=== PATIENT | male | born 1965 | race Caucasian/White ===

== ENCOUNTER → 2018-12-29 15:07 | Outpatient (CLI) | payer OTHER, SELFPAY ==
--- NOTE | 2018-12-29 15:16 | XR_ITS ---
PROCEDURE: XR LUMBAR SPINE MIN 4V CLINICAL INDICATION: LOW BACK PAIN COMPARISON: LS5 LUMBAR SPINE 5 VIEWS from 05/02/2013 FINDINGS: Minimal lumbar curvature convex left. There is degenerative disc disease at L2-L3 with mild reversal of lordosis at that level. Mild degenerative disc disease L 1 L2 L3-L4 L4-5 and L5-S1. Mild facet arthritic changes L5-S1. No fracture or dislocation. No lytic or blastic change. IMPRESSION: Degenerative changes most pronounced at L2-L3 with reversal of the lumbar lordosis which could be due to patient positioning or muscle spasm Dictated by: Abelardo Mandel MD 12/29/2018 17:51 Electronically signed by Abelardo Mandel MD in [place] 12/29/2018 17:51
== END ==
PROVIDERS: PCP Family Medicine; Visit Provider Family Medicine
DX: M54.5 Low back pain (principal)
CPT/HCPCS: 72110

== ENCOUNTER → 2019-05-19 10:31 | Outpatient (CLI) | payer OTHER, SELFPAY ==
--- NOTE | 2019-05-19 10:36 | XR_ITS ---
PROCEDURE: XR CHEST 2V CLINICAL HISTORY: PNEUMONIA Cough and shortness of air, smoker COMPARISON: CXR CHEST(2 VIEWS-NOT PORTABLE) from 12/12/2013 CXR CHEST(2 VIEWS-NOT PORTABLE) from 05/11/2015 CXR CHEST(2 VIEWS-NOT PORTABLE) from 01/14/2016 FINDINGS: The cardiomediastinal silhouette and pulmonary vascularity are within normal limits. COPD. Consolidation is present in both lower lobes, lingula, and in the right midlung laterally consistent with bilateral pneumonia. There is biapical pleural thickening right greater than left. Cannot exclude a right apical mass. Consider chest CT for further evaluation. IMPRESSION: 1. Bilateral pneumonia with COPD. 2. Biapical pleural thickening with possible right apical mass. Consider chest CT with contrast for further evaluation Dictated by: Abelardo Mandel MD 05/19/2019 16:20 Electronically signed by Abelardo Mandel MD in [place] 05/19/2019 16:20
== END ==
PROVIDERS: PCP Family Medicine; Visit Provider Family Medicine
DX: J18.9 Pneumonia, unspecified organism (principal)
CPT/HCPCS: 71046

== ENCOUNTER → 2019-05-31 08:56 | Outpatient (CLI) | payer OTHER, SELFPAY ==
--- NOTE | 2019-05-31 09:00 | CT_ITS ---
PROCEDURE: CT CHEST WO/W CON CLINCAL INDICATION: PULMONARY MASS Pneumonia, cough and shortness of air, abnormal chest x-ray, right apical mass COMPARISON: ABDPELW/O CT ABD PELVIS W/O CONTRAST from 05/18/2013 CXR CHEST(2 VIEWS-NOT PORTABLE) from 01/14/2016 XR CHEST 2V from 05/19/2019 TECHNIQUE: IV Contrast: 75ml Optiray 350 Axial images obtained with sagittal and coronal reformats. All CT scans at the facility use one or more dose reduction, viz: automated exposure control, ma/kV adjustment per patient size (including targeted exams where dose is matched to indication, i.e. head), or iterative reconstruction technique. FINDINGS: HEART AND MEDIASTINAL STRUCTURES: Unremarkable. LUNGS AND PLEURAL SPACES: There is right apical pleural thickening posteriorly. Left apical pleural thickening is also noted. There are scattered pleural, subpleural, and parenchymal opacities. What appears to represent mostly atelectatic changes present in the lung bases with some associated consolidation and bronchial thickening. Central parenchymal opacity noted in the left upper lobe. Bibasilar parenchymal opacities are present. These are somewhat irregular in nature. No effusions are evident. BONY STRUCTURES: No acute bony abnormalities apparent. UPPER ABDOMEN: Prior cholecystectomy with prominent cystic duct remnant ADDITIONAL FINDINGS: No other significant abnormalities. IMPRESSION: Scattered bilateral upper and lower lobe parenchymal opacities greater in the lung bases which mostly appears to represent atelectatic/fibrotic changes with some underlying pulmonary consolidation and diffuse bronchial thickening. This could represent an atypical pneumonia. Cryptogenic organizing pneumonia/BOOP is considered. There is some right apical pleural thickening. This is nonspecific and may be inflammatory/infectious. Neoplasm is not totally excluded. Suggest 3 month follow-up to confirm short term stability. Pulmonology consult may be of further value. Dictated by: Abelardo Mandel MD 06/01/2019 07:26 Electronically signed by Abelardo Mandel MD in [place] 06/01/2019 07:26
--- NOTE | 2019-05-31 10:15 | HMH.ITSHM ---
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 []ASPIRIN, DICYCLOMINE, MIDOPRINE, SUCRALFATE, OMEPRAZOLE, FLUOXTINE INHALER
== END ==
PROVIDERS: PCP Family Medicine; Visit Provider Family Medicine
DX: R91.8 Other nonspecific abnormal finding of lung field (principal)
CPT/HCPCS: 71270; Q9967

== ENCOUNTER → 2019-06-03 08:51 | Outpatient (CLI) | payer OTHER, SELFPAY ==
--- NOTE | 2019-06-03 08:56 | FL_ITS ---
PROCEDURE: FL UPPER GI W AIR CLINICAL INDICATION: EPIGASTRIC PAIN COMPARISON: No exams were available for comparison TECHNIQUE: FLUOROSCOPY TIME : 1.4 minutes FINDINGS: The esophagus, stomach, and duodenum have an unremarkable appearance.There is no evidence of hiatal hernia. No ulcer or mass evident. No mucosal abnormalities apparent. There is normal peristalsis. The duodenal C-loop is nondisplaced. IMPRESSION: Negative upper GI Dictated by: Abelardo Mandel MD 06/03/2019 14:42 Electronically signed by Abelardo Mandel MD in [place] 06/03/2019 14:42
== END ==
PROVIDERS: PCP Family Medicine; Visit Provider Family Medicine
DX: R10.13 Epigastric pain (principal)
CPT/HCPCS: 74246

== ENCOUNTER → 2019-08-08 09:34 | Outpatient (CLI) | payer OTHER, SELFPAY ==
[2019-08-08 11:36] LABS: Coronavirus 19 IgG Antibody Negative (Negative); Coronavirus 19 IgM Antibody Negative (Negative)
== END ==
PROVIDERS: Visit Provider Surgery
DX: Z01.818 Encounter for other preprocedural examination (principal); R10.13 Epigastric pain
CPT/HCPCS: 36415; 86328

== ENCOUNTER 2019-08-09 08:39 | Day surgery (SDC) | payer OTHER, SELFPAY ==
--- NOTE | 2019-08-03 14:55 | SUR.PREOP ---
08/03/2019 @ 6483--PHONE CALL MADE TO PATIENT. PATIENT UNDERSTANDS THAT LAB WORK AND COVID TESTING NEEDS TO BE COMPLETED @ 930 ON 08/08/2019. PATIENT UNDERSTANDS IF LAB WORK AND COVID-19 TESTS ARE NOT COMPLETED BY 12PM ON THAT DATE, THE SURGERY SCHEDULED WILL BE CANCELLED AND RESCHEDULED FOR ANOTHER TIME.
--- NOTE | 2019-08-09 08:48 | P.HP_ITS ---
HPI HPI: Patient is a 54-year-old male from [place]. He presents for upper endoscopy. He was referred by Dr. Aguilera for epigastric pain and seen in the office a couple of months ago. I had previously seen the patient several years ago and in 2013 he had bleeding ulcer. During that year he had undergone approximately 4 upper endoscopies to follow-up bleeding ulcers. Patient is somewhat of a poor historian. He describes recent history of pains. He points from his sternal notch to his umbilicus as the location. He actually seems to locate the pain to his substernal area and to the left chest. It seems to be somewhat positional in nature. This seems actually be worse when he is up and about and walking. He had an upper GI series which is unremarkable. Patient is on Carafate and omeprazole at this time. [facility] History I have reviewed the patient's past medical history: Yes Medical History: Reports:: Coronary Artery Disease, Gastroesophageal Reflux Disease(GERD), Hyperlipidemia *Have you ever received a pneumonia vaccine?: No *Have you received a flu vaccine this season?: No Other Surgeries: Yes: Appendectomy, Cholecystectomy, Colonoscopy, EGD, Hernia Repair Amputation: No Fractures: No - *Social History Smoking Status: Never smoker Alcohol Intake: never Substance Use Type: denies use *Occupational Status:: employed Housing: house *Travel in the last 8 weeks: None Family Hx:: No significant family history Review of Systems - Review of Systems Review of systems:: pertinent systems reviewed and negative unless documented below Meds Home Medications Medication Instructions Recorded Confirmed Type aspirin 81 mg tablet,delayed 81 mg PO DAILY 03/25/19 08/09/19 History release omeprazole 40 mg capsule,delayed 40 mg PO DAILY 03/25/19 08/09/19 History release sucralfate 1 gram tablet 1 g PO BID 03/25/19 08/09/19 History fluoxetine 40 mg capsule 40 mg PO DAILY 06/06/19 08/09/19 History midodrine 10 mg tablet 10 mg PO DAILY 06/06/19 08/09/19 History Dicyclomine HCl [Bentyl 10mg 10 mg PO QID 08/09/19 08/09/19 History capsule] Allergies Allergy/AdvReac Type Severity Reaction Status Date / Time No Known Allergies Allergy Verified 08/09/19 09:26 Exam - *Routine HEENT Exam Head: Present: normocephalic Eye: Present: EOMI, PERRL ENT: Present: mucous membranes moist - *Routine Neck Exam Present: supple. Absent: lymphadenopathy - *Routine Respiratory Exam Present: CTA bilaterally - *Routine Cardiovascular Exam Present: RRR - *Routine Abdominal Exam Present: soft, normoactive bowel sounds. Absent: tenderness - *Routine Extremities Exam Absent: cyanosis, clubbing, edema - *Routine Skin Exam Present: warm. Absent: rash - *Routine Neurological Exam Present: alert, oriented X3 Assessment and Plan - Assessment and plan all Dx Assessment and Plan for all problems:: Plan to proceed with upper endoscopy to rule out upper GI etiology particularly due to his history of ulcers. However, his symptomatology seems to be somewhat atypical and location is essentially thoracoabdominal.
[2019-08-09 09:32] VITALS: BP 127/89; PULSE 72; RESP 18; TEMP 36.5; O2SAT 98; BMI 21.7
--- NOTE | 2019-08-09 09:35 | P.PN_ITS ---
[facility] Anesthesia Checklist - Patient Identification Patient Identification: Arm Band, Verbal (Name & ) - Structural Data Admitted From: Home Planned Operative Procedure/s: egd Consent for Planned Operative Procedure(s) Verified: Yes Verified Documents: History and Physical - NPO Status Verified Time NPO: 00:00 - Additional verifications Patient : No Anesthesia Reactions: No Hx Blood Transfusions: No Blood Transfusion Reaction: No Cephalosporin Allergy: No Previous Colonoscopy: Yes - Cardiovascular Assessment Heart Sounds: S1 & S2 Pulse Strength: Baseline Pulse Rhythm: Regular Peripheral Edema: No - Airway Assessment C-Spine Mobility Assessed: Yes TMJ Mobility Assessed: Yes Dentition: Good Dentition - Neurological Assessment Level of Consciousness: Awake, Alert, Appropriate Hx Seizures: No Numbness or tingling in extremities: No - Anesthesia Plan Anesthesia Risk discussed: Yes Anesthesia Plan: Verified ASA Class: III Anesthesia Type: MAC [facility] History I have reviewed the patient's past medical history: Yes Medical History: Reports:: Coronary Artery Disease, Gastroesophageal Reflux Disease(GERD), Hyperlipidemia *Have you ever received a pneumonia vaccine?: No *Have you received a flu vaccine this season?: No Anesthesia experience/problems:: none Other Surgeries: Yes: Appendectomy, Cholecystectomy, Colonoscopy, EGD, Hernia Repair Amputation: No Fractures: No - *Social History Smoking Status: Never smoker Alcohol Intake: never Substance Use Type: denies use *Occupational Status:: employed Housing: house *Travel in the last 8 weeks: None Family Hx:: No significant family history
--- NOTE | 2019-08-09 10:33 | HMH.SCOPE ---
- Procedure: Date: 08/09/19 Procedure Performed:: Esophagogastroduodenoscopy with biopsies Indications:: Patient is a 54-year-old male from [place]. He presents for upper endoscopy. He was referred by Dr. Aguilera for epigastric pain and seen in the office a couple of months ago. I had previously seen the patient several years ago and in 2013 he had bleeding ulcer. During that year he had undergone approximately 4 upper endoscopies to follow-up bleeding ulcers. Patient is somewhat of a poor historian. He describes recent history of pains. He points from his sternal notch to his umbilicus as the location. He actually seems to locate the pain to his substernal area and to the left chest. It seems to be somewhat positional in nature. This seems actually be worse when he is up and about and walking. He had an upper GI series which is unremarkable. Patient is on Carafate and omeprazole at this time. Plan was made to proceed with upper endoscopy to evaluate potential upper GI etiology. However, his symptoms seem to be more thoracoabdominal and potentially positional Performing Provider:: Srinivasan Dawson MD Referring Provider:: Wicho Aguilera MD Sedation:: Propofol Procedure:: Patient was taken to endoscopy procedure room. He was positioned in a lateral decubitus position. Adequate intravenous sedation was achieved. Olympus endoscope was inserted via the oropharynx. Advanced through the esophagus. In the distal esophagus just proximal to the gastroesophageal junction there was beginnings of a Schatzki's ring. Stomach was cannulated and insufflated. Retroflexion revealed no appreciable hiatal hernia. There was very minimal nonerosive gastritis. There is no evidence of any ulceration. Gastric antral mucosal biopsy was obtained for CLOtest for H. pylori. There was an area in the antrum that was likely previously healed ulcer and this was biopsied as well. Pylorus was traversed. Duodenum was unremarkable. Endoscope was withdrawn into the distal esophagus and a couple biopsies were obtained at the gastroesophageal junction where there was a beginning Schatzki's ring. A couple of distal esophageal biopsies were obtained to rule out microscopic esophagitis. Endoscope was withdrawn. Findings:: Minimal beginnings of Schatzki's ring Very subtle minor nonerosive gastritis Recommendations:: No obviously apparent upper GI etiology for his symptoms. This may be thoracic. May need evaluation for chest pain. This could be atypical chest pain and anxiety related. Complications:: None immediately apparent Estimated blood obtained (mL): 3
[2019-08-09 10:35] VITALS: BP 103/73; PULSE 73; RESP 18; TEMP 36.4; O2SAT 98
[2019-08-09 10:41] VITALS: O2SAT 99
[2019-08-09 10:45] VITALS: BP 109/73; PULSE 70; RESP 18; TEMP 36.4; O2SAT 98
[2019-08-09 10:55] VITALS: BP 110/79; PULSE 64; RESP 18; TEMP 36.4; O2SAT 99
[2019-08-09 11:10] VITALS: BP 128/88; PULSE 59; RESP 18; TEMP 36.4; O2SAT 99
== END 2019-08-09 11:10 | disposition home or self-care (01) ==
PROVIDERS: PCP Family Medicine; Visit Provider Surgery
PROC: 0DJ08ZZ Inspection of Upper Intestinal Tract, Via Natural or Artificial Opening Endoscopic (ICD-10-PCS; CPT 43235; principal; 2019-08-09 09:00)
DX: K22.2 Esophageal obstruction (principal); K29.60 Other gastritis without bleeding; Z87.11 Personal history of peptic ulcer disease; Z79.899 Other long term (current) drug therapy; I25.10 Atherosclerotic heart disease of native coronary artery without angina pectoris; K21.9 Gastro-esophageal reflux disease without esophagitis; E78.5 Hyperlipidemia, unspecified; Z90.49 Acquired absence of other specified parts of digestive tract
CPT/HCPCS: 43239; 87339

== ENCOUNTER → 2019-09-06 11:45 | Outpatient (CLI) | payer OTHER, SELFPAY ==
--- NOTE | 2019-09-06 | CA_ITS ---
APPROVED REPORT Exam: Exercise Treadmill Technologist: Beba Cox Ht: 6 ft 0 in Wt: 155 lbs BSA: 1.91 m2 HR: 64 bpm BP: 127/83 mmHg Indications: Chest pain Medical History Medications: Amlodipine,,,,, Omeprazole,,,,, Aspirin,,,,, Atorvastatin,,,,, Sucralfate,,,,, DicyCLOMINE,,,,, Fluoxetine,,,,, MiDOdrine,,,,, Stress Test Details Test: Elan HR Resting HR: 75 bpm Max Heart Rate (APMHR): 166 bpm Max HR Achieved: 130 bpm Target HR (85% APMHR): 141 bpm % of APMHR: 78 Recovery HR: 82 bpm BP Resting BP: 127.0/83.0 mmHg Max BP: 136.0/84.0 mmHg Recovery BP: 122.0/83.0 mmHg ECG Clinical Exercise duration: 09:00 min Highest Stage Achieved: Exercise capacity: 10.1 METs Stress ECG Conclusion Resting ECG: Normal sinus rhythm, right bundle branch block Patient exercised 9:00 on Elan Protocol. Test stopped due to shortness of air and leg fatigue. Symptoms: No change in pretest chest pain with exercise. Arrhythmias/Ectopy: None ST-T Changes: 0.5 - 1 mm of slightly upsloping ST depression only in lead V3 Conclusion: Within normal GXT for heart rate achieved (78% of PM). Myoview images reported separately. Test Summary REST . . . . . . . Sitting REST . . . . . . . Standing REST 04:20 0.0 0.0 75 . 127/ 83 . . Stage 1 01:00 10.0 1.7 93 . . . . Stage 1 02:00 10.0 1.7 102 . . . . Stage 1 03:00 10.0 1.7 105 . 126/ 80 . . Stage 2 01:00 12.0 2.5 106 . . . . Stage 2 02:00 12.0 2.5 109 . . . . Stage 2 03:00 12.0 2.5 117 . 136/ 84 . . Stage 3 01:00 14.0 3.4 121 . . . . Stage 3 . . . . . . . Shortness of Breath Stage 3 . . . . . . . Myoview Injected Stage 3 02:00 14.0 3.4 124 . . . . Stage 3 03:00 14.0 3.4 130 . . . Stop exercise at 09:00 RECOVERY 01:00 0.0 0.0 89 . . . . RECOVERY 02:00 0.0 0.0 91 . 127/ 82 . . RECOVERY 03:00 0.0 0.0 85 . 126/ 89 . . RECOVERY 04:00 0.0 0.0 81 . 126/ 89 . . RECOVERY 05:00 0.0 0.0 81 . 122/ 83 . . RECOVERY 05:23 0.0 0.0 81 . 122/ 83 . . Electronically signed by : Mihir Serrano, 09/06/2019 21:52:47
--- NOTE | 2019-09-06 11:45 | NM_ITS ---
APPROVED REPORT Exam: Nuclear Stress Test Indication: Chest pain, SOB, Syncope, Fatigue, High cholesterol, Family history Patient Location: Outpatient Stress Tech: Beba Cox [place] Tech:Danni Lomax, ARRT, RT (R)(N) Ht: 6 ft 0 in Wt: 155 lbs HR: 64 bpm BP: 127/83 mmHg BSA: 1.91 m2 History: Chest pain, SOB, Syncope, Fatigue, High cholesterol, Family history Procedure: Patient exercised on Elan protocol 9:00 minutes and sec, resting heart rate 64 bpm, resting blood pressure 127/83 mmHg, with exercise maximum heart rate achived was 130 bpm which is Less than 85 % of the maximum predicted heart rate and blood pressure was 136/84 mmHg. Test was stopped due to SOA and leg fatigue. Patient denied any complaint of chest pain. Patient has Good exercise capacity, achieved 10.1 METs of workload on treadmill, the blood pressure response to exercise was Abnormal. Electrocardiogram Resting electrocardiogram showed sinus rhythm right ventricular conduction delay, with exercise there is less than 1.[address] segment depression noted from the baseline EKG. The EKG portion of the exercise Myoview is nondiagnostic as patient did not achieve the target heart rate. Cardiac Stress and Resting SPECT Images: Cardiac Stress and Resting SPECT images were obtained using technetium 99m Myoview 31.9 mCi stress and 10.69 mCi at rest. Gated SPECT for the analysis of segmental wall motion and calculation of the ejection fraction also done. Cardiac stress and resting SPECT images show uniform myocardial activity without segmental perfusion abnormality, computer derived ejection fraction is 61% with no regional wall motion abnormality, right ventricle is normal size and contractility. Conclusion: 1. The EKG portion of the exercise Myoview is nondiagnostic as patient did not achieve the target heart rate, patient has good exercise capacity achieved 10.1 mets of workload on treadmill, the blood pressure response to exercise was abnormal, there was no exercise-induced chest discomfort. 2. No scintigraphic evidence of reversible ischemia seen, computer derived ejection fraction is 61% with no regional wall motion abnormality, right ventricle is normal size and contractility. Electronically signed by : Mihir Serrano, 09/06/2019 21:55:23
== END ==
PROVIDERS: PCP Family Medicine; Visit Provider Physician Assistant
DX: R07.89 Other chest pain (principal); R06.00 Dyspnea, unspecified; R94.31 Abnormal electrocardiogram [ECG] [EKG]; I45.10 Unspecified right bundle-branch block; K21.9 Gastro-esophageal reflux disease without esophagitis; Z82.49 Family history of ischemic heart disease and other diseases of the circulatory system
CPT/HCPCS: 78452; 93017; A9502

== ENCOUNTER 2019-10-03 08:58 | Day surgery (SDC) | payer OTHER, SELFPAY ==
[2019-10-03] VITALS (10 sets, daily range): BP systolic 107–149; BP diastolic 68–85; PULSE 58–73; RESP 16; TEMP 36.3; O2SAT 90–97; BMI 21.6
[2019-10-03 09:53] LABS: Basophils # 0.1 K/mm3 (0-0.2); Eosinophils # 0.1 K/mm3 (0.0-0.4); Eosinophils % 2.5 % (0.1-12.0); Hemoglobin 12.7 g/dL (14.1-18.0); Lymphocytes # 1.3 K/mm3 (0.7-4.5); Lymphocytes % 28.2 % (10-50); Mean Corpuscular HGB Conc 34.3 g/dL (31.8-35.4); Mean Corpuscular Hemoglobin 31.8 pg (27.0-31.2); Mean Corpuscular Volume 92.6 fl (80-94); Mean Platelet Volume 8.9 fl (7.4-10.4); Monocytes # 0.3 K/mm3 (0.1-1.0); Monocytes % 6.9 % (1.7-9.3); Neutrophils # 2.9 K/mm3 (1.8-7.8); Neutrophils % 61.3 % (37.0-80.0); Platelet Count 186 K/mm3 (142-424); Red Cell Distribution Width 13.1 % (11.5-17.5); White Blood Count 4.7 K/mm3 (4.8-10.8)
[2019-10-03 10:18] LABS: Chloride 103 mmol/L (98-107); Sodium 138 mmol/L (136-145)
[2019-10-03 10:19] LABS: Potassium 4.4 mmoL/L (3.5-5.1)
[2019-10-03 10:21] LABS: Blood Urea Nitrogen 15 mg/dl (9-20); Creatinine Clearance Estimated 96 mL/min (50-200); Estimated Glomerular Filt Rate 88 ml/min (>60); GFR (African American) 106 ML/MIN (>60)
[2019-10-03 10:22] LABS: Anion Gap 12.4 mEq/L (5-15); Calcium 9.5 mg/dl (8.4-10.2); Carbon Dioxide 27 mmol/L (22.0-30.0); Glucose 92 mg/dl (74-100)
--- NOTE | 2019-10-03 11:00 | IR_ITS ---
APPROVED REPORT Patient Location: Outpatient Business Continuity Analyst: VANDA Almonte RT (R) PROCEDURES Left heart catheterization Left ventriculogram Selective coronary angiogram INDICATION Recalcitrant angina pectoris accompanied by risk factors for heart disease Informed consent was obtained prior to the procedure. COMPLICATIONS none Estimated Blood Loss: less than 10 mls TECHNIQUE One percent lidocaine used to anesthetize the right anterior aspect of the wrist. The right radial artery was accessed via the Seldinger technique. A 6 Lebanese sheath was placed in the right radial artery. 2.5 mg of verapamil, 800 mcg of nitroglycerin, 1mg Lidocaine and 5000 U Heparin were given through the arterial sheath. The trap catheter was also used to perform left heart catheterization, left ventriculogram and selective coronary angiogram. At the end of the procedure the sheath was removed good hemostasis was achieved using Traclet band, patient was transferred to the postop holding area in stable condition. ANGIOGRAPHIC RESULTS The left main artery Normal The left anterior descending artery Normal The circumflex artery Normal The right coronary artery Dominant normal The MARTINEZ ventriculogram reveals Normal 65% The left ventricular end-diastolic pressure 10 mmHg IMPRESSION Normal coronary arteries Normal ejection fraction Normal left ventricular end-diastolic pressure PLAN 1. Evaluation of noncardiac chest pain Electronically signed by : John Paul Alejandro, 10/03/2019 11:32:55
== END 2019-10-03 14:40 | disposition home or self-care (01) ==
LOC: CATHLAB 09:00
PROVIDERS: PCP Family Medicine; Visit Provider Internal Medicine
DX: I25.118 Atherosclerotic heart disease of native coronary artery with other forms of angina pectoris (principal); E78.5 Hyperlipidemia, unspecified; I45.10 Unspecified right bundle-branch block; K21.9 Gastro-esophageal reflux disease without esophagitis; R06.00 Dyspnea, unspecified; R94.31 Abnormal electrocardiogram [ECG] [EKG]; Z82.49 Family history of ischemic heart disease and other diseases of the circulatory system; I10 Essential (primary) hypertension
CPT/HCPCS: 36415; 80048; 85025; 93458; 99152; C1725; C1769; J1644; Q9967

== ENCOUNTER → 2019-10-24 13:02 | Outpatient (CLI) | payer OTHER, SELFPAY ==
--- NOTE | 2019-10-24 13:03 | CA_ITS ---
APPROVED REPORT EXAM: Comprehensive 2D, Doppler, and color-flow Echocardiogram Hand Roller Engraver: Geeta Teran RVT Ht: 6 ft 0 in Wt: 158lbs BSA: 1.93 BP: 130/80 mmHg Indications: CP,SOA,CAD,GERD,HTN,HLD 2D Dimensions LVOT 2.01 cm (M/F) 1.5-2.5 M-Mode Dimensions RVDd 1.71 cm (0.9-2.6) LVDd 4.47 cm (3.5-5.7) LVDs 2.96 cm (3.5-5.7) IVSd 0.64 cm (0.6-1.1) PWd 0.68 cm (0.6-1.1) EF (Teich) 62.70% FS 33.80% EDV (Teich) 91.00 mL ESV (Teich) 33.90 mL LV Diastology E/A Ratio 1.06 Mitral Valve MV A Velocity 53.00 (40-130 cm/s) Left Ventricle Left atrium is normal size, left ventricle is normal size, there is no concentric left ventricular hypertrophy, visually estimated ejection fraction 55% with no regional wall motion abnormality, diastolic parameters are within normal range. Right Ventricle Right atrium and right ventricle are normal size and contractility. Aortic Valve Aortic valve is minimally thickened and fibrosed, there is no aortic stenosis or aortic insufficiency. Mitral Valve Mitral valve is minimally thickened, there is mild mitral regurgitation. Tricuspid Valve Tricuspid valve is grossly normal, there is mild tricuspid regurgitation, tricuspid regurgitation jet velocity is inadequate for calculation of the right ventricular systolic pressure. Pulmonic Valve Pulmonic valve is poorly visualized. Great Vessels Aortic root is normal size. Pericardium No significant pericardial effusion noted. Conclusion 1. Normal left ventricular size, preserved left ventricular systolic function, visually estimated ejection fraction 55% with no regional wall motion abnormality, diastolic parameters are within normal range. 2. Mild mitral and tricuspid regurgitation. 3. No significant pericardial effusion noted. Electronically signed by : Mihir Serrano, 10/24/2019 19:31:51
== END ==
PROVIDERS: PCP Family Medicine; Visit Provider Urology
DX: R07.9 Chest pain, unspecified (principal); R06.00 Dyspnea, unspecified
CPT/HCPCS: 93306

== ENCOUNTER → 2019-12-20 10:59 | Outpatient (CLI) | payer OTHER, SELFPAY ==
[2019-12-20 11:49] LABS: Chloride 102 mmol/L (98-107); Potassium 4.4 mmoL/L (3.5-5.1); Sodium 140 mmol/L (136-145)
[2019-12-20 11:51] LABS: Alanine Aminotransferase 45 U/L (12-78); Aspartate Amino Transferase 37 U/L (17-59); Blood Urea Nitrogen 9 mg/dl (9-20); Estimated Glomerular Filt Rate 88 ml/min (>60); GFR (African American) 106 ML/MIN (>60)
[2019-12-20 11:52] LABS: Albumin Level 4.4 g/dl (3.5-5.0); Albumin/Globulin Ratio 1.5 (1.1-1.8); Alkaline Phosphatase 110 U/L (38-126); Anion Gap 10.4 mEq/L (5-15); Bilirubin,Total 0.3 mg/dl (0.2-1.3); Carbon Dioxide 32 mmol/L (22.0-30.0); Glucose 87 mg/dl (74-100); Total Protein,Serum 7.4 g/dl (6.3-8.2)
--- NOTE | 2019-12-20 13:03 | CT_ITS ---
PROCEDURE: CT ABDOMEN PELVIS W CON CLINICAL INDICATION: DIARRHEA Left lower quadrant pain and diarrhea COMPARISON: No exams were available for comparison TECHNIQUE: IV Contrast: 75ML OPTIRAY 350 Oral Contrast None Axial images obtained with sagittal and coronal reformats. All CT scans at the facility use one or more dose reduction, viz: automated exposure control, ma/kV adjustment per patient size (including targeted exams where dose is matched to indication, i.e. head), or iterative reconstruction technique. FINDINGS: LOWER THORAX: There are mild atelectatic or fibrotic changes in the lung bases. ABDOMEN & PELVIS: There are post cholecystectomy changes. A 3 mm hypodensity is present in the hepatic dome too small to categorize. The spleen, adrenal glands, pancreas, has an unremarkable appearance. Small exophytic cyst projects off the lower pole of the right kidney. 2 mm nonobstructing stone is present along the lower pole of the left kidney. There are few small mesenteric lymph nodes nonspecific. No evidence of appendicitis. No intestinal obstruction or free air. Increased density is present in the right inguinal region may be due to prior hernia repair. No evidence diverticulitis there is a small sclerotic focus in the right ilium possibly due to a bone island. IMPRESSION: No acute abdominal or pelvic findings. Nonacute findings. Please see above for detail. Dictated by: Abelardo Mandel MD 12/20/2019 16:37 Abelardo Mandel MD in [place] 12/20/2019 16:37
[2019-12-20 19:37] LABS: Adenovirus F 40/41, stool Not Detected (NotDetected); Astrovirus Not Detected (NotDetected); Campylobacter Not Detected (NotDetected); Clostridium Difficile A/B, PCR Not Detected (NotDetected); Cryptosporidium Not Detected (NotDetected); Cyclospora Cayetanesis Not Detected (NotDetected); Entamoeba histolytica Not Detected (NotDetected); Enteroaggregative E coli Not Detected (NotDetected); Enterotoxigenic E coli Not Detected (NotDetected); Giardia lamblia Not Detected (NotDetected); Norovirus Not Detected (NotDetected); Plesimonas Shigalloides, PCR Not Detected (NotDetected); Rotavirus A Not Detected (NotDetected); Salmonella, PCR Not Detected (NotDetected); Sapovirus Not Detected (NotDetected); Shiga-like toxin E coli Not Detected (NotDetected); Shigella Enterovasive E coli Not Detected (NotDetected); Vibrio Cholerae Not Detected (NotDetected); Vibrio, PCR Not Detected (NotDetected); Yersinia Entercolitica, PCR Not Detected (NotDetected)
[2019-12-23 09:34] LABS: Enteropathogenic E coli Detected (NotDetected)
== END ==
PROVIDERS: PCP Nurse Practitioner; Visit Provider Nurse Practitioner
DX: R10.32 Left lower quadrant pain (principal); R19.7 Diarrhea, unspecified; A04.0 Enteropathogenic Escherichia coli infection
CPT/HCPCS: 36415; 74177; 80053; 87507; Q9967

== ENCOUNTER → 2020-01-25 16:12 | Outpatient (CLI) | payer OTHER, SELFPAY ==
[2020-01-25 20:42] LABS: Uric Acid 4.9 mg/dl (3.5-8.5)
[2020-01-25 20:46] LABS: C-Reactive Protein 3.1 mg/L (0-4)
[2020-01-25 23:13] LABS: Erythrocyte Sedimentation Rate 17 mm/hr (0-20)
[2020-01-27 14:17] LABS: Sjogren's Anti-SS-A <0.2 AI (0.0-0.9); Sjogren's Anti-SS-B <0.2 AI (0.0-0.9)
[2020-01-27 15:13] LABS: Cytoplasmic (C-ANCA) <1:20 titer (Neg:<1:20)
[2020-01-27 18:56] LABS: Anti-Centromere B Antibodies <0.2 AI (0.0-0.9); Perinuclear (P-ANCA) <1:20 titer (Neg:<1:20); RA Latex Turbid. 27.5 IU/mL (0.0-13.9)
[2020-01-28 08:52] LABS: Anti-Cyclic Citrullinated Pept 6 units (0-19)
[2020-01-28 17:29] LABS: Antinuclear Antibodies, IFA Negative (.)
[2020-01-29 17:13] LABS: Antinuclear Antibodies (ANA) Negative
== END ==
PROVIDERS: Visit Provider Internal Medicine Pulmonary Disease
DX: R06.00 Dyspnea, unspecified (principal); J84.9 Interstitial pulmonary disease, unspecified; J98.4 Other disorders of lung
CPT/HCPCS: 36415; 84550; 85651; 86038; 86140; 86200; 86235; 86256; 86431

== ENCOUNTER → 2020-02-23 09:46 | Outpatient (CLI) | payer OTHER, SELFPAY ==
--- NOTE | 2020-02-23 09:48 | CT_ITS ---
PROCEDURE: CT CHEST WO/W CON CLINCAL INDICATION: ABNORMAL CHEST CT 05/31/19 RIGHT APICAL THICKENING. Follow-up right apical pleural thickening, cough and shortness of air, right apical mass COMPARISON: CT CT CHEST WO/W CON from 05/31/2019 TECHNIQUE: IV Contrast: 75ml Isovue 370 Axial images obtained with sagittal and coronal reformats. All CT scans at the facility use one or more dose reduction, viz: automated exposure control, ma/kV adjustment per patient size (including targeted exams where dose is matched to indication, i.e. head), or iterative reconstruction technique. FINDINGS: No mediastinal or hilar mass or adenopathy. The pleural thickening in the right apex posteriorly has shown improvement. There is some minimal residual atelectatic or fibrotic change in this region. There are scattered atelectatic changes which have also improved. There remains some residual scattered atelectasis or fibrosis. Subpleural opacity is present in the lingular region also slightly improved. Upper abdominal images are unremarkable. No acute bony findings. IMPRESSION: There has been overall improvement in the right apical pleural thickening. There has been improvement in the bilateral atelectatic change. There is some persistent subpleural opacity noted in the lingular area but also slightly improved. No new abnormalities are evident. Dictated by: Abelardo Mandel MD 02/25/2020 09:26 Abelardo Mandel MD in [place] 02/25/2020 09:26
== END ==
PROVIDERS: PCP Family Medicine; Visit Provider Family Medicine
DX: R93.89 Abnormal findings on diagnostic imaging of other specified body structures (principal)
CPT/HCPCS: 71270; Q9967

== ENCOUNTER → 2020-03-19 12:54 | Outpatient (CLI) | payer OTHER, SELFPAY ==
[2020-03-19 14:05] VITALS: PULSE 79; PULSE 80
== END ==
PROVIDERS: PCP Family Medicine; Visit Provider Internal Medicine Pulmonary Disease
DX: R06.09 Other forms of dyspnea (principal)
CPT/HCPCS: 94060; 94618; 94640; 94726; 94729

== ENCOUNTER 2020-08-13 09:23 | Emergency (ER) | payer OTHER, SELFPAY ==
[2020-08-13 09:24] VITALS: BP 161/118; PULSE 70; RESP 16; TEMP 36.8; O2SAT 98; BMI 22.1
--- NOTE | 2020-08-13 09:32 | ECG_ITS ---
APPROVED REPORT Exam: Resting ECG HR:67 bpm ECG Measurements Heart Rate 67 AXES MN 132 P -3 QRSd 92 QRS 3 QT 412 T 19 QTc 435 Conclusion Normal sinus rhythm RSR' or QR pattern in V1 suggests right ventricular conduction delay Borderline ECG Electronically signed by : Conrad Schwartz, 08/14/2020 19:51:39
--- NOTE | 2020-08-13 09:34 | XR_ITS ---
PROCEDURE INFORMATION: Exam: XR Chest Exam date and time: 08/13/2020 9:34 AM Age: 55 years old Clinical indication: Pain; Left-sided; Additional info: Chest pain TECHNIQUE: Imaging protocol: XR of the chest. Views: 1 view. COMPARISON: CT CHEST WO/W CON 02/23/2020 9:58 AM FINDINGS: Tubes, catheters and devices: There are several EKG leads overlying the chest. Lungs: There are some increased markings at the left lung base. This could represent an early infiltrate. Pleural spaces: Unremarkable. No pleural effusion. No pneumothorax. Heart/Mediastinum: Unremarkable. No cardiomegaly. Bones/joints: Unremarkable. IMPRESSION: There are some increased markings at the left lung base. This could represent an early infiltrate. Followup imaging is recommended.
--- NOTE | 2020-08-13 09:36 | CT_ITS ---
PROCEDURE INFORMATION: Exam: CT Head Without Contrast Exam date and time: 08/13/2020 9:36 AM Age: 55 years old Clinical indication: Dizziness; Additional info: Headache, dizzy TECHNIQUE: Imaging protocol: Computed tomography of the head without contrast. Radiation optimization: All CT scans at this facility use at least one of these dose optimization techniques: automated exposure control; mA and/or kV adjustment per patient size (includes targeted exams where dose is matched to clinical indication); or iterative reconstruction. COMPARISON: No relevant prior studies available. FINDINGS: Brain: Normal. No hemorrhage. Unremarkable white matter. No mass effect. Cerebral ventricles: No ventriculomegaly. Paranasal sinuses: Visualized sinuses are unremarkable. No fluid levels. Mastoid air cells: Visualized mastoid air cells are well aerated. Bones/joints: Unremarkable. No acute fracture. Soft tissues: Unremarkable. IMPRESSION: No acute intracranial abnormality.
--- NOTE | 2020-08-13 09:37 | HMH.EDGENADL ---
ED Disposition Clinical Impression: Tension headache, Suspected 2019-nCoV infection, Malaise and fatigue Disposition: Home, Self-Care Condition on Discharge: Fair Instructions: DI for Fatigue, DI for Viral Syndrome, DI for Headache Additional Instructions: You have been evaluated for frontal headache, generalized malaise. Please continue to monitor your symptoms. Stay hydrated. Take Tylenol and ibuprofen. Follow-up with Dr. Aguilera early this week. Return to the emergency department for any new or worsening chest pain, headache, vision changes, other concern. Referrals: Eliceo Aguilera MD [Primary Care Provider] - Time of Disposition: 12:49 - Critical Care Critical Care Time: No Attestation: On 08/13/20, the high probability of a clinically significant, sudden or life threatening deterioration of the following system(s) required my full and direct attention, intervention and personal management. The time I documented below is in addition to time spent performing reported procedures but includes the following listed in this critical care notation. Medical Decision Making - Medical Records Medical records reviewed: Yes: I reviewed the patient's medical records. - Neil Inquiry Pt receiving controlled substance: No Vital Signs: 08/13/20 09:24 08/13/20 10:00 08/13/20 11:30 Temperature 98.3 F Temperature Source Oral Pulse Rate 70 65 Pulse Rate [Right Radial] 70 Respiratory Rate 16 18 18 Blood Pressure 181/128 H 127/86 Blood Pressure [Right Arm] 161/118 H Blood Pressure Mean 140 96 Blood Pressure Mean [Right Arm] 132 02 Sat by Pulse Oximetry 98 96 96 Oxygen Delivery Method Room Air 08/13/20 13:28 Temperature 98.3 F Temperature Source Oral Pulse Rate 65 Pulse Rate [Right Radial] Respiratory Rate 18 Blood Pressure 127/86 Blood Pressure [Right Arm] Blood Pressure Mean Blood Pressure Mean [Right Arm] 02 Sat by Pulse Oximetry Oxygen Delivery Method Room Air - Lab Data Lab Results 08/13/20 09:30: WBC 6.6, RBC 5.05, Hgb 15.5, Hct 46.5, MCV 92.0, MCH 30.7, MCHC 33.3, RDW 13.2, Plt Count 204, MPV 8.5, Neut % (Auto) 69.5, Lymph % (Auto) 21.3, Bath % (Auto) 6.4, Eos % (Auto) 1.9, Baso % (Auto) 1.0, Neut # (Auto) 4.6, Lymph # (Auto) 1.4, Bath # (Auto) 0.4, Eos # (Auto) 0.1, Baso # (Auto) 0.1 08/13/20 09:30: Sodium 137, Potassium 4.3, Chloride 103, Carbon Dioxide 31 H, Anion Gap 7.3, BUN 15, Creatinine 0.90, Estimated Creat Clear 89, Estimated GFR 88, Est GFR ( Amer) 106, Glucose 103 H, Calcium 9.4, Total Bilirubin 0.6, AST 50, ALT 58, Alkaline Phosphatase 139 H, Troponin I < 0.01, Total Protein 7.5, Albumin 4.6, Globulin 2.9, Albumin/Globulin Ratio 1.6 08/13/20 10:08: D-Dimer 0.44 08/13/20 12:50: Troponin I < 0.01 Result diagrams: 08/13/20 09:30 08/13/20 09:30 Orders (Tests/Meds): ED MEDICATIONS Discontinued Medications Generic Name Dose Route Start Last Admin Trade Name Freq PRN Reason Stop Dose Admin Diphenhydramine HCl 12.5 mg 08/13/20 11:15 08/13/20 11:20 Diphenhydramine 50mg/Ml Vial IV 08/13/20 11:16 12.5 mg ONCE ONE Administration Hydromorphone HCl 0.5 mg 08/13/20 19:12 08/13/20 13:34 Hydromorphone 2mg/Ml Syringe IV 08/13/20 19:13 0.5 mg ONCE ONE Administration Sodium Chloride 1,000 mls @ 999 mls/hr 08/13/20 09:45 08/13/20 09:48 Sod Chlor 0.9% 1000ml Bag IV 08/13/20 10:45 999 mls/hr .Q1H1M CINTHIA Administration Ketorolac Tromethamine 15 mg 08/13/20 11:15 08/13/20 11:20 Ketorolac 30mg/Ml Vial IM 08/13/20 11:16 15 mg ONCE ONE Administration Metoclopramide HCl 10 mg 08/13/20 11:15 08/13/20 11:20 Metoclopramide Hcl 10mg/2ml Vial IVP 08/13/20 11:16 10 mg ONCE ONE Administration - Radiology Data #1 Image(s): Chest Image Reviewed: Yes I reviewed the patient's radiology results, Yes I reviewed the patient's radiology image Preliminary Findings: Normal/NAD IMPRESSION: There are some in
[2020-08-13 09:53] LABS: Basophils # 0.1 K/mm3 (0-0.2); Eosinophils # 0.1 K/mm3 (0.0-0.4); Eosinophils % 1.9 % (0.1-12.0); Hematocrit 46.5 % (42.0-52.0); Hemoglobin 15.5 g/dL (14.1-18.0); Lymphocytes # 1.4 K/mm3 (0.7-4.5); Lymphocytes % 21.3 % (10-50); Mean Corpuscular HGB Conc 33.3 g/dL (31.8-35.4); Mean Corpuscular Hemoglobin 30.7 pg (27.0-31.2); Mean Platelet Volume 8.5 fl (7.4-10.4); Monocytes # 0.4 K/mm3 (0.1-1.0); Monocytes % 6.4 % (1.7-9.3); Neutrophils # 4.6 K/mm3 (1.8-7.8); Neutrophils % 69.5 % (37.0-80.0); Platelet Count 204 K/mm3 (142-424); Red Blood Count 5.05 M/mm3 (4.60-6.20); Red Cell Distribution Width 13.2 % (11.5-17.5); White Blood Count 6.6 K/mm3 (4.8-10.8)
[2020-08-13 09:58] LABS: Alanine Aminotransferase 58 U/L (12-78); Albumin Level 4.6 g/dl (3.5-5.0); Albumin/Globulin Ratio 1.6 (1.1-1.8); Alkaline Phosphatase 139 U/L (38-126); Anion Gap 7.3 mEq/L (5-15); Aspartate Amino Transferase 50 U/L (17-59); Bilirubin,Total 0.6 mg/dl (0.2-1.3); Blood Urea Nitrogen 15 mg/dl (9-20); Calcium 9.4 mg/dl (8.4-10.2); Carbon Dioxide 31 mmol/L (22.0-30.0); Chloride 103 mmol/L (98-107); Creatinine Clearance Estimated 89 mL/min (50-200); Estimated Glomerular Filt Rate 88 ml/min (>60); GFR (African American) 106 ML/MIN (>60); Globulin 2.9 g/dL (1.3-3.2); Glucose 103 mg/dl (74-100); Potassium 4.3 mmoL/L (3.5-5.1); Sodium 137 mmol/L (136-145); Total Protein,Serum 7.5 g/dl (6.3-8.2)
[2020-08-13 10:00] VITALS: BP 181/128; PULSE 70; RESP 18; O2SAT 96
[2020-08-13 10:11] LABS: Troponin I < 0.01 ng/ml (0.00-0.034)
[2020-08-13 10:35] LABS: D-Dimer 0.44 ug/mL (0.0-0.5)
[2020-08-13 11:30] VITALS: BP 127/86; PULSE 65; RESP 18; O2SAT 96
--- NOTE | 2020-08-13 12:37 | PC.NURSE ---
pt given meal tray
[2020-08-13 13:24] LABS: Troponin I < 0.01 ng/ml (0.00-0.034)
[2020-08-13 13:28] VITALS: BP 127/86; PULSE 65; RESP 18; TEMP 36.8; O2SAT 96
== END 2020-08-13 13:38 | disposition home or self-care (01) ==
PROVIDERS: Emergency Provider Emergency Medicine; PCP Family Medicine
DX: G44.209 Tension-type headache, unspecified, not intractable (principal); Z20.822 Contact with and (suspected) exposure to COVID-19; K21.9 Gastro-esophageal reflux disease without esophagitis; E78.5 Hyperlipidemia, unspecified; I10 Essential (primary) hypertension; I25.10 Atherosclerotic heart disease of native coronary artery without angina pectoris; Z79.899 Other long term (current) drug therapy
CPT/HCPCS: 36415; 70450; 71045; 80053; 84484; 85025; 85378; 93005; 96365; 96375; 99283; U0003

== ENCOUNTER → 2021-10-08 09:58 | Outpatient (CLI) | payer OTHER, SELFPAY ==
--- NOTE | 2021-10-08 10:05 | XR_ITS ---
FINAL REPORT CLINICAL HISTORY: chest pain COMPARISON: August 13, 2020 FINDINGS: PA and lateral views of the chest were obtained. The cardiac and mediastinal silhouettes are within normal limits. The lungs are clear. There is no pleural effusion or pneumothorax. No acute osseous abnormality is identified. IMPRESSION: No radiographic evidence of acute cardiac or pulmonary disease. Reviewed, Interpreted and Dictated by Mallory Flores MD Transcribed by Grace Vaughn Authenticated and . [facility]
== END ==
PROVIDERS: PCP Family Medicine; Visit Provider Nurse Practitioner
DX: R07.9 Chest pain, unspecified (principal)
CPT/HCPCS: 71046

== ENCOUNTER → 2021-10-21 11:40 | Outpatient (CLI) | payer OTHER, SELFPAY ==
--- NOTE | 2021-10-21 11:43 | NM_ITS ---
APPROVED REPORT Exam: Nuclear Stress Test Indication: HYPERLIPIDEMIA, FM HX., C.P., SOB, SYNCOPE Patient Location: Outpatient Stress Tech: Ilana Moncada PR Tech:Dione Dietz, ARRT RT(R)(N) Ht: 6 ft 1 in Wt: 170 lbs HR: 67 bpm BP: 128/84 mmHg BSA: 2.01 m2 TID: 1.08 BMI: 22.4 History: HYPERLIPIDEMIA, FM HX., C.P., SOB, SYNCOPE Procedure: Patient received a 0.4 mg of intravenous Lexiscan, resting heart rate 67 bpm, resting blood pressure 128/84 mmHg, with Lexiscan maximum heart rate achived was 102 bpm which is Less than 85 % of the maximum predicted heart rate and blood pressure was 113/73 mmHg. With Lexiscan, patient denied any complaint of chest pain. Electrocardiogram Resting electrocardiogram shows sinus rhythm, with Lexiscan there is less than 1.[address] segment depression noted from the baseline EKG. The EKG portion of the Lexiscan is nondiagnostic. Cardiac Stress and Resting SPECT Images: Cardiac Stress and Resting SPECT images were obtained using technetium 99m Myoview 31.7 mCi stress and 10.98 mCi at rest. Gated SPECT analysis of segmental wall motion and calculation of the ejection fraction also done. Prone images were also obtained. Cardiac stress and rest SPECT images show reversible ischemia involving the anterolateral wall, computer derived ejection fraction is 49% with no regional wall motion abnormality, right ventricle is normal size and contractility. Conclusion: 1. The EKG portion of the Lexiscan is nondiagnostic. 2. Scintigraphic evidence of reversible ischemia involving the anterolateral wall, compared to ejection fraction 49% with no regional wall motion abnormality, right ventricle is normal size and contractility. 3. Abnormal Lexiscan Myoview study. Electronically signed by : Mihir Serrano MD 10/21/2021 18:54:44
--- NOTE | 2021-10-21 11:44 | CA_ITS ---
APPROVED REPORT EXAM: Comprehensive 2D, Doppler, and color-flow Echocardiogram Director Of Manufacturing Operations: Juliet Soto, RCS, RVS Ht: 5 ft 9 in Wt: 169lbs BSA: 1.92 BP: 116/75 mmHg Indications: SOA, CAd, HTN, HLD, SOB 2D Dimensions IVSd 1.29 cm LVEF (Visual) 80.40 % PWd 1.04 cm LA Volume 57.40 mL LVDd 4.88 cm LA Volume Index 29.90 mL/m2 (M/F) 16-34 LVDs 2.48 cm Aortic Root 2.93 cm Left Atrium 4.18 cm LVOT 2.03 cm (M/F) 1.5-2.5 M-Mode Dimensions LA Diam 4.18 cm (1.9-4.0) LVDd 4.96 cm (3.5-5.7) Ao Diam 3.49 cm (2.0-3.7) LVDs 3.34 cm (3.5-5.7) EF (Teich) 60.90% FS 32.70% EDV (Teich) 116.10 mL TAPSE 1.72 (<1.7) ESV (Teich) 45.40 mL LV Diastology E Decel Time 223.00 (160-240 msec) E/A Ratio 1.15 MED E' 6.60 (< 7 cm/sec) MED A' 8.70 cm/s E'/MED E' Ratio 12.82 (>14) LAT E' 11.00 (<10 cm/sec) LAT A' 11.80 cm/s E/LAT E' Ratio 7.69 (>14) Aortic Valve LVOT Max 102.00 (70-110 cm/s) LVOT VTI 21.56 cm AoV Peak Catrachito. 119.00 (50-130 cm/s) AO Peak GR. 5.60 mmHg AO Mean GR. 3.10 (<5 mmHg) AO VTI 27.32 (18-25 cm) DESTINI (VTI) 2.55 (2.5-4.5 cm2) Mitral Valve MV A Velocity 73.00 (40-130 cm/s) E/A Ratio 1.15 MV Decel. Time 223.00 (160-240 ms) MV PHT 67.00 ms Pulmonary Valve PV Peak Velocity 72.00 (50-150 cm/s) LA End VMAX 137.00 cm/s Tricuspid Valve TR P. Velocity 239.00 cm/s RAP Estimate 10.00 mmHg RVSP 32.80 mmHg Left Ventricle Left atrium is mildly enlarged, left ventricle is normal size, left ventricle wall thickness is upper limit of normal, there is preserved left ventricular systolic function, estimated ejection fraction 55% with no regional wall motion abnormality, diastolic parameters are within normal range. Right Ventricle Right atrium and left ventricle are normal size and contractility. Aortic Valve Aortic valve is grossly normal there is no aortic stenosis or aortic insufficiency. Mitral Valve Mitral valve is grossly normal, there is trace mitral regurgitation. Tricuspid Valve Tricuspid grossly normal, there is trace tricuspid regurgitation, tricuspid regurgitation jet velocity is inadequate for calculation of the right ventricular systolic pressure. Pulmonic Valve Pulmonic valve is poorly visualized. Great Vessels Aortic root is normal size. Inferior vena cava is poorly visualized Pericardium No significant pericardial effusion. Conclusion 1. Normal left ventricular size preserved left ventricular systolic function, estimated ejection fraction 55% with no regional wall motion abnormality, diastolic parameters are within normal range. 2. Trace mitral and tricuspid regurgitation. 3. No significant pericardial effusion. 4. Inferior vena cava is poorly visualized. Electronically signed by : Mihir Serrano MD 10/22/2021 06:42:25
--- NOTE | 2021-10-21 13:36 | CA_ITS ---
APPROVED REPORT Exam: Pharmacologic Technologist: Ilana Oconnell, Ht: 5 ft 9 in Wt: 169 lbs BSA: 1.92 m2 HR: 67 bpm BP: 128/84 mmHg Medical History Medications: Amlodipine,,,,, Omeprazole,,,,, Aspirin,,,,, TAMSULOSIN,,,,, Albuterol,,,,, DicyCLOMINE,,,,, Fluoxetine,,,,, Nitroglycerin,,,,, MiDOdrine,,,,, Stress Test Details Test: LEXISCAN Reason for pharmacologic stress test: physical limitation. HR Resting HR: 67 bpm Max Heart Rate (APMHR): 164.066429 bpm Max HR Achieved: 106 bpm Target HR (85% APMHR): 139.511747 bpm % of APMHR: 64.63 Recovery HR: 68 bpm BP Resting BP: 128/84 mmHg Max BP: 128/84 mmHg Recovery BP: 120.0/81.0 mmHg ECG Clinical Exercise duration: 04:00 min Highest Stage Achieved: Exercise capacity: 1.0 METs Stress ECG Conclusion Yumi- Had extreme leg pain with treadmill Symptoms: SOA. Chest Pain Arrhythmias/Ectopy: none ST-T Changes: <1.5mm ST Changes Electronically signed by : Mihir Serrano MD 10/21/2021 18:51:45
== END ==
PROVIDERS: PCP Family Medicine; Visit Provider Physician Assistant
DX: R07.9 Chest pain, unspecified (principal)
CPT/HCPCS: 78452; 93017; 93306; A9502; J2785

== ENCOUNTER → 2021-11-05 12:24 | Outpatient (CLI) | payer OTHER, SELFPAY ==
[2021-11-05 14:12] LABS: Basophils % 0.7 % (0.1-2.0); Eosinophils % 0.8 % (0.1-12.0); Hematocrit 45.3 % (42.0-52.0); Lymphocytes # 0.6 K/mm3 (0.7-4.5); Mean Corpuscular HGB Conc 30.8 g/dL (31.8-35.4); Mean Corpuscular Hemoglobin 30.2 pg (27.0-31.2); Mean Platelet Volume 9.4 fl (7.4-10.4); Monocytes # 0.5 K/mm3 (0.1-1.0); Monocytes % 7.9 % (1.7-9.3); Neutrophils # 4.6 K/mm3 (1.8-7.8); Neutrophils % 79.6 % (37.0-80.0); Platelet Count 221 K/mm3 (142-424); Red Blood Count 4.62 M/mm3 (4.60-6.20); Red Cell Distribution Width 13.4 % (11.5-17.5); White Blood Count 5.8 K/mm3 (4.8-10.8)
[2021-11-05 14:18] LABS: Anion Gap 12.1 mEq/L (5-15); Blood Urea Nitrogen 5 mg/dl (9-20); Carbon Dioxide 23 mmol/L (22.0-30.0); Chloride 105 mmol/L (98-107); Estimated Glomerular Filt Rate 100 ml/min (>60); GFR (African American) 121 ML/MIN (>60); Glucose 162 mg/dl (74-100); Potassium 4.1 mmoL/L (3.5-5.1); Sodium 136 mmol/L (136-145)
== END ==
PROVIDERS: PCP Family Medicine; Visit Provider Physician Assistant
DX: U07.1 COVID-19 (principal); R06.00 Dyspnea, unspecified; I25.118 Atherosclerotic heart disease of native coronary artery with other forms of angina pectoris; I20.8 Other forms of angina pectoris; I45.10 Unspecified right bundle-branch block; E78.5 Hyperlipidemia, unspecified; R94.31 Abnormal electrocardiogram [ECG] [EKG]; R94.39 Abnormal result of other cardiovascular function study; Z82.49 Family history of ischemic heart disease and other diseases of the circulatory system
CPT/HCPCS: 36415; 80048; 85025; C9803; U0003; U0005

== ENCOUNTER → 2021-11-06 09:06 | Day surgery (SDC) | payer OTHER, SELFPAY ==
[2021-11-06 09:31] VITALS: BMI 25.1
--- NOTE | 2021-11-06 09:41 | SUR.PREOP ---
upon going to get patient to bring back for his procedure. pt is c/o fever, chills, aching all over. pt does have a positive covid swab. pt's procedure rescheduled. pt informed if s/s become worse to go to the ED or call family doctor for an appointment.
== END ==
PROVIDERS: Visit Provider Internal Medicine
DX: Z53.09 Procedure and treatment not carried out because of other contraindication (principal)

== ENCOUNTER → 2021-11-19 15:02 | Outpatient (CLI) | payer OTHER, SELFPAY ==
[2021-11-19 15:08] LABS: MANUAL DIFFERENTIAL MANUAL DIFFERENTIAL (MANUAL DIFF)
[2021-11-19 16:52] LABS: Basophils % 0.7 % (0.1-2.0); Eosinophils % 0.8 % (0.1-12.0); Hematocrit 44.5 % (42.0-52.0); Hemoglobin 13.8 g/dL (14.1-18.0); Lymphocytes # 1.3 K/mm3 (0.7-4.5); Mean Corpuscular Hemoglobin 30.7 pg (27.0-31.2); Mean Corpuscular Volume 99.1 fl (80-94); Mean Platelet Volume 9.2 fl (7.4-10.4); Monocytes # 0.4 K/mm3 (0.1-1.0); Monocytes % 8.6 % (1.7-9.3); Neutrophils # 2.9 K/mm3 (1.8-7.8); Platelet Count 286 K/mm3 (142-424); Red Blood Count 4.49 M/mm3 (4.60-6.20); Red Cell Distribution Width 13.4 % (11.5-17.5); White Blood Count 4.6 K/mm3 (4.8-10.8)
[2021-11-19 17:26] LABS: Anion Gap 10.7 mEq/L (5-15); Blood Urea Nitrogen 14 mg/dl (9-20); Calcium 8.9 mg/dl (8.4-10.2); Carbon Dioxide 26 mmol/L (22.0-30.0); Chloride 106 mmol/L (98-107); Estimated Glomerular Filt Rate 100 ml/min (>60); GFR (African American) 121 ML/MIN (>60); Glucose 101 mg/dl (74-100); Potassium 4.7 mmoL/L (3.5-5.1); Sodium 138 mmol/L (136-145)
[2021-11-19 19:51] LABS: Eosinophils % 1 % (0-3); Hypochromasia 1+; Lymphocytes % 38 % (10-50); Macrocytosis 1+; Monocytes % 5 % (2-9); Neutrophils % 56 % (42-76); Platelet Estimate Normal; Total Cells Counted 100
== END ==
PROVIDERS: PCP Family Medicine; Visit Provider Internal Medicine
DX: R06.00 Dyspnea, unspecified (principal); I20.8 Other forms of angina pectoris; U07.1 COVID-19
CPT/HCPCS: 36415; 80048; 85007; 85014; 85018; 85048; 85049; C9803; U0003; U0005

== ENCOUNTER 2021-11-20 07:59 | Day surgery (SDC) | payer OTHER, SELFPAY ==
[2021-11-20] VITALS (18 sets, daily range): BP systolic 95–131; BP diastolic 60–74; PULSE 55–79; RESP 18; TEMP 36.9; O2SAT 93–98; BMI 25.1
--- NOTE | 2021-11-20 07:31 | IR_ITS ---
APPROVED REPORT Patient Location: Outpatient Atmospheric Physicist: VANDA Almonte RT (R) PROCEDURES Right radial arterial access Catheter placement in the right subclavian artery Right subclavian artery retrograde angiogram Right femoral arterial access Left heart catheterization Left ventriculogram Selective coronary angiogram Catheter placement in the right subclavian artery Right subclavian artery antegrade angiogram INDICATION Right subclavian artery atherosclerosis, Angina pectoris, Abnormal Myoview Informed consent was obtained prior to the procedure. COMPLICATIONS NONE Estimated Blood Loss: LESS THAN 10 ML TECHNIQUE One percent lidocaine used to anesthetize the right anterior aspect of the wrist. The right radial artery was accessed via the Seldinger technique. A 6 [place] sheath was placed in the right radial artery. 2.5 mg of verapamil, 800 mcg of nitroglycerin, 1mg Lidocaine and 5000 U Heparin were given through the arterial sheath. The papa catheter was also used to perform left heart catheterization, left ventriculogram and selective coronary angiogram. At the end of the procedure the sheath was removed good hemostasis was achieved using Traclet band, patient was transferred to the postop holding area in stable condition. ANGIOGRAPHIC RESULTS The left main artery Normal The left anterior descending artery Has proximal 20 to 30% mild atheromatous plaque with a mid vessel being normal The circumflex artery Nondominant normal The right coronary artery Dominant The MARTINEZ ventriculogram reveals Preserved 55 The left ventricular end-diastolic pressure 10 mmHg Brachiocephalic artery is patent with a mild proximal dilatation. Proximal right common carotid artery is widely patent. Distal to the right common carotid artery the right subclavian artery is atheromatous and has mild vascular ectatic area. 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 Medical management for coronary disease with aggressive risk factor modification 2. No specific therapy is required for the vascular ectasia involving the brachiocephalic and subclavian artery other than risk factor modification for coronary disease and peripheral vascular disease Electronically signed by : John Paul Alejandro MD 11/21/2021 14:50:14
== END 2021-11-20 14:00 | disposition home or self-care (01) ==
LOC: CATHLAB 08:00
PROVIDERS: PCP Family Medicine; Visit Provider Internal Medicine
DX: I25.118 Atherosclerotic heart disease of native coronary artery with other forms of angina pectoris (principal); I70.8 Atherosclerosis of other arteries; I10 Essential (primary) hypertension; E78.5 Hyperlipidemia, unspecified; K21.9 Gastro-esophageal reflux disease without esophagitis; I45.10 Unspecified right bundle-branch block; R94.39 Abnormal result of other cardiovascular function study; Z82.49 Family history of ischemic heart disease and other diseases of the circulatory system
CPT/HCPCS: 36225; 93458; 99152; 99153; C1725; C1769; J1644; Q9967

== ENCOUNTER → 2022-11-18 11:00 | Outpatient (CLI) | payer OTHER, SELFPAY ==
[2022-11-18 18:26] LABS: Basophils # 0.1 K/mm3 (0-0.2); Basophils % 0.9 % (0.1-2.0); Eosinophils # 0.1 K/mm3 (0.0-0.4); Eosinophils % 1.8 % (0.1-12.0); Hematocrit 42.1 % (42.0-52.0); Lymphocytes # 1.1 K/mm3 (0.7-4.5); Mean Corpuscular HGB Conc 33.2 g/dL (31.8-35.4); Mean Corpuscular Hemoglobin 31.2 pg (27.0-31.2); Mean Corpuscular Volume 94.1 fl (80-94); Mean Platelet Volume 9.8 fl (7.4-10.4); Monocytes # 0.4 K/mm3 (0.1-1.0); Monocytes % 8.1 % (1.7-9.3); Neutrophils # 3.5 K/mm3 (1.8-7.8); Neutrophils % 68.1 % (37.0-80.0); Platelet Count 226 K/mm3 (142-424); Red Blood Count 4.47 M/mm3 (4.60-6.20); Red Cell Distribution Width 13.2 % (11.5-17.5); White Blood Count 5.1 K/mm3 (4.8-10.8)
[2022-11-18 18:37] LABS: Alanine Aminotransferase 30 U/L (12-78); Albumin/Globulin Ratio 1.6 (1.1-1.8); Alkaline Phosphatase 140 U/L (38-126); Anion Gap 14.9 mEq/L (5-15); Aspartate Amino Transferase 30 U/L (17-59); Bilirubin,Total 0.6 mg/dl (0.2-1.3); Blood Urea Nitrogen 12 mg/dl (9-20); Calcium 9.1 mg/dl (8.4-10.2); Carbon Dioxide 22 mmol/L (22.0-30.0); Chloride 108 mmol/L (98-107); Estimated Glomerular Filt Rate 77 ml/min (>60); GFR (African American) 93 ML/MIN (>60); Globulin 2.5 g/dL (1.3-3.2); Glucose 90 mg/dl (74-100); Potassium 3.9 mmoL/L (3.5-5.1); Sodium 141 mmol/L (136-145); Total Protein,Serum 6.5 g/dl (6.3-8.2)
[2022-11-18 19:07] LABS: Thyroid Stimulating Hormone 0.44 uIU/mL (0.465-4.68)
[2022-11-18 19:26] LABS: Vitamin B12 212 pg/mL (239-931)
[2022-11-18 19:38] LABS: Hemoglobin A1C 5.4 % (4.0-6.0)
== END ==
PROVIDERS: PCP Family Medicine; Visit Provider Family Medicine
DX: R42 Dizziness and giddiness (principal); D64.9 Anemia, unspecified; D51.9 Vitamin B12 deficiency anemia, unspecified; Z79.899 Other long term (current) drug therapy
CPT/HCPCS: 80053; 82607; 83036; 84443; 85025

== ENCOUNTER → 2022-11-24 14:41 | Outpatient (CLI) | payer OTHER, SELFPAY | PROVIDERS: PCP Family Medicine; Visit Provider Family Medicine | DX: R42 Dizziness and giddiness (principal) | CPT/HCPCS: 93225; 93226 ==

== ENCOUNTER → 2022-11-27 23:54 | Outpatient (CLI) | payer OTHER, SELFPAY ==
[2022-11-27 19:12] LABS: Free Thyroxine Index 2.4 ug/dL (5.93-13.13); T4 (Thyroxine) 8.2 ug/dl (5.53-11.0); Triiodothryronine (T3) Uptake 29 % (23.5-40.5)
[2022-11-27 19:26] LABS: Thyroid Stimulating Hormone 0.68 uIU/mL (0.465-4.68)
== END ==
PROVIDERS: PCP Family Medicine; Visit Provider Family Medicine
DX: R42 Dizziness and giddiness (principal)
CPT/HCPCS: 84436; 84443; 84479

== ENCOUNTER 2023-04-01 11:07 | Outpatient (CLI) | payer OTHER, SELFPAY ==
[2023-04-01 11:54] LABS: Basophils % 0.7 % (0.1-2.0); Eosinophils # 0.1 K/mm3 (0.0-0.4); Eosinophils % 1.3 % (0.1-12.0); Hemoglobin 15.4 g/dL (14.1-18.0); Lymphocytes # 1.7 K/mm3 (0.7-4.5); Lymphocytes % 29.9 % (10-50); Mean Corpuscular HGB Conc 33.4 g/dL (31.8-35.4); Mean Corpuscular Hemoglobin 32.3 pg (27.0-31.2); Mean Corpuscular Volume 96.8 fl (80-94); Mean Platelet Volume 9.1 fl (7.4-10.4); Monocytes # 0.5 K/mm3 (0.1-1.0); Monocytes % 8.5 % (1.7-9.3); Neutrophils # 3.3 K/mm3 (1.8-7.8); Neutrophils % 59.6 % (37.0-80.0); Platelet Count 206 K/mm3 (142-424); Red Blood Count 4.75 M/mm3 (4.60-6.20); Red Cell Distribution Width 13.7 % (11.5-17.5); White Blood Count 5.5 K/mm3 (4.8-10.8)
[2023-04-01 12:08] LABS: Chloride 105 mmol/L (98-107); Potassium 4.3 mmoL/L (3.5-5.1); Sodium 137 mmol/L (136-145)
[2023-04-01 12:10] LABS: Alanine Aminotransferase 37 U/L (12-78); Anion Gap 12.3 mEq/L (5-15); Aspartate Amino Transferase 30 U/L (17-59); Bilirubin,Unconjugated 0.4 mg/dL (0.0-1.1); Blood Urea Nitrogen 14 mg/dl (9-20); Carbon Dioxide 24 mmol/L (22.0-30.0); Estimated Glomerular Filt Rate 87 ml/min (>60); GFR (African American) 105 ML/MIN (>60)
[2023-04-01 12:11] LABS: Albumin Level 4.1 g/dl (3.5-5.0); Alkaline Phosphatase 129 U/L (38-126); Bilirubin,Direct 0.1 mg/dl (0.0-0.4); Bilirubin,Indirect 0.3 mg/dL (0.0-0.9); Bilirubin,Total 0.4 mg/dl (0.2-1.3); Calcium 8.8 mg/dl (8.4-10.2); Chol/HDL Ratio 3.8 (1-3.5); Cholesterol 184 mg/dl (140-200); Glucose 99 mg/dl (74-100); HDL Cholesterol 49 mg/dl (40-60); Magnesium 1.9 mg/dl (1.6-2.3); Total Protein,Serum 6.8 g/dl (6.3-8.2); Triglycerides 121 mg/dl (30-150); VLDL Cholesterol 24 mg/dL (0-40)
[2023-04-01 12:28] LABS: Direct LDL Cholesterol 109.34 mg/dL (100-129)
[2023-04-01 12:29] LABS: Free T4 (Free Thyroxine) 0.98 ng/dl (0.78-2.19)
== END 2023-04-01 23:59 ==
LOC: LAB 11:09
PROVIDERS: PCP Nurse Practitioner; Visit Provider Physician Assistant
DX: E78.5 Hyperlipidemia, unspecified (principal); I25.10 Atherosclerotic heart disease of native coronary artery without angina pectoris; I45.10 Unspecified right bundle-branch block; K21.9 Gastro-esophageal reflux disease without esophagitis; R06.09 Other forms of dyspnea; R07.89 Other chest pain; R94.31 Abnormal electrocardiogram [ECG] [EKG]; Z02.4 Encounter for examination for driving license
CPT/HCPCS: 36415; 80048; 80061; 80076; 83735; 84439; 84443; 85025

== ENCOUNTER 2023-04-14 10:10 | Outpatient (CLI) | payer OTHER, SELFPAY ==
--- NOTE | 2023-04-14 10:13 | CA_ITS ---
APPROVED REPORT EXAM: Comprehensive 2D, Doppler, and color-flow Echocardiogram Cancer Center Director: LOVE Garcia, RVS Ht: 5 ft 9 in Wt: 180lbs BSA: 1.98 BP: 130/73 mmHg Indications: CDL clearance, CAD, HTN, HLD 2D Dimensions IVSd 1.12 cm LVEF (Visual) 75.30 % PWd 1.21 cm LA Volume 87.50 mL LVDd 4.59 cm LA Volume Index 44.698257 mL/m2 (M/F) 16-34 LVDs 2.57 cm Left Atrium 3.71 cm M-Mode Dimensions RVDd 2.61 cm (0.9-2.6) LA Diam 4.28 cm (1.9-4.0) LVDd 4.94 cm (3.5-5.7) IVSd 0.97 cm (0.6-1.1) PWd 0.93 cm (0.6-1.1) EPSs 0.54 cm EDV (Teich) 115.00 mL LV Diastology E Decel Time 277 (160-240 msec) E/A Ratio 1.14 MED A' 10.70 cm/s LAT A' 11.90 cm/s Aortic Valve DESTINI Index 1.67 cm2/m2 AoV Peak Catrachito. 120.0 (50-130 cm/s) AO Peak GR. 5.80 mmHg AO Mean GR. 2.90 (<5 mmHg) AO VTI 22.6 (18-25 cm) DESTINI (VTI) 3.37 (2.5-4.5 cm2) Mitral Valve MV A Velocity 60.0 (40-130 cm/s) E/A Ratio 1.14 Pulmonary Valve OK End VMAX 181.0 cm/s Tricuspid Valve TR P. Velocity 232.00 cm/s RAP Estimate 10.00 mmHg RVSP 31.60 mmHg Left Ventricle The left ventricle is normal size. The left ventricular systolic function is normal. The left ventricular ejection fraction is within the normal range. There is increased LV wall thickness. There is normal LV segmental wall motion. The left ventricular diastolic function is normal. LVEF is 60%. Right Ventricle The right ventricle is mildly dilated. The right ventricular systolic function is normal. Atria The left atrium is mildly dilated. The right atrium is mildly dilated. There is no Doppler evidence of interatrial shunt. Aortic Valve The aortic valve is mildly thickened. There is no aortic valvular stenosis. Trace aortic regurgitation. Mitral Valve The mitral valve leaflets are mildly thickened. No evidence of mitral valve stenosis. Mild mitral regurgitation. Tricuspid Valve The tricuspid valve leaflets are thin and pliable. Trace tricuspid regurgitation. There is insufficient TR jet to estimate RVSP. Pulmonic Valve The pulmonary valve is normal in structure. Trace pulmonic regurgitation. Great Vessels The aortic root is normal in size. The ascending aorta is normal in size. IVC is normal in size and collapses >50% with inspiration. Pericardium There is no pericardial effusion. Other Information Study Quality: Fair Conclusion Normal biventricular systolic function. Mild RV dilation. Mild biatrial dilation. Mild MR. Electronically signed by : Charis Bass MD 04/16/2023 11:44:15
== END 2023-04-14 23:59 ==
LOC: RT 10:11
PROVIDERS: PCP Nurse Practitioner; Visit Provider Physician Assistant
DX: R06.00 Dyspnea, unspecified (principal); R07.9 Chest pain, unspecified; R94.31 Abnormal electrocardiogram [ECG] [EKG]; I25.10 Atherosclerotic heart disease of native coronary artery without angina pectoris; I45.10 Unspecified right bundle-branch block; E78.5 Hyperlipidemia, unspecified; K21.9 Gastro-esophageal reflux disease without esophagitis; Z02.4 Encounter for examination for driving license
CPT/HCPCS: 93306

== ENCOUNTER 2023-11-17 14:45 | Outpatient (CLI) | payer OTHER, SELFPAY ==
[2023-11-17 19:36] LABS: Alanine Aminotransferase 25 U/L (12-78); Albumin Level 3.9 g/dl (3.5-5.0); Albumin/Globulin Ratio 1.4 (1.1-1.8); Alkaline Phosphatase 111 U/L (38-126); Anion Gap 7.8 mEq/L (5-15); Aspartate Amino Transferase 27 U/L (17-59); Bilirubin,Total 0.7 mg/dl (0.2-1.3); Blood Urea Nitrogen 11 mg/dl (9-20); Calcium 9.3 mg/dl (8.4-10.2); Carbon Dioxide 27 mmol/L (22.0-30.0); Chloride 107 mmol/L (98-107); Estimated Glomerular Filt Rate 99 ml/min (>60); GFR (African American) 120 ML/MIN (>60); Globulin 2.8 g/dL (1.3-3.2); Glucose 94 mg/dl (74-100); Potassium 4.8 mmoL/L (3.5-5.1); Sodium 137 mmol/L (136-145); Total Protein,Serum 6.7 g/dl (6.3-8.2)
[2023-11-17 20:01] LABS: Prostate Specific Ag Screen 0.8 ng/ml (0.0-4.0)
== END 2023-11-17 23:59 | disposition home or self-care (01) ==
LOC: LAB.DROPOF 11-18 14:45
PROVIDERS: PCP Family Medicine; Visit Provider Family Medicine
DX: N40.0 Benign prostatic hyperplasia without lower urinary tract symptoms (principal); E78.5 Hyperlipidemia, unspecified; Z12.5 Encounter for screening for malignant neoplasm of prostate
CPT/HCPCS: 80053; G0103

== ENCOUNTER 2023-12-08 10:18 | Outpatient (CLI) | payer OTHER, SELFPAY ==
[2023-12-08 10:23] LABS: Microscopic, Urine URINE MICROSCOPIC (MICROSCOPIC)
[2023-12-08 10:49] LABS: Appearance,Urine CLEAR (Clear); Bilirubin,Urine Negative (Negative); Blood, Urine Negative (Negative); Color,Urine YELLOW (Yellow); Glucose,Urine (UA) Negative (Negative); Ketones,Urine Negative (Negative); Leukocyte Esterase,Urine Negative (Negative); Nitrate,Urine Negative (Negative); Protein,Urine Negative (Negative); Urobilinogen,Urine 0.2 EU/dl (0.2)
[2023-12-08 11:04] LABS: Bacteria,Urine Trace /lpf; Squamous Epithelial Cell,Urine Occasional #/hpf (0-5)
[2023-12-08 11:05] LABS: Albumin Level 3.8 g/dl (3.5-5.0); Chloride 109 mmol/L (98-107); Sodium 138 mmol/L (136-145)
[2023-12-08 11:08] LABS: Alanine Aminotransferase 29 U/L (12-78); Albumin/Globulin Ratio 1.6 (1.1-1.8); Alkaline Phosphatase 104 U/L (38-126); Aspartate Amino Transferase 28 U/L (17-59); Bilirubin,Total 0.5 mg/dl (0.2-1.3); Blood Urea Nitrogen 11 mg/dl (9-20); Calcium 9.6 mg/dl (8.4-10.2); Carbon Dioxide 30 mmol/L (22.0-30.0); Estimated Glomerular Filt Rate 87 ml/min (>60); GFR (African American) 105 ML/MIN (>60); Globulin 2.4 g/dL (1.3-3.2); Glucose 93 mg/dl (74-100); Total Protein,Serum 6.2 g/dl (6.3-8.2)
[2023-12-08 11:54] LABS: Basophils % 0.8 % (0.1-2.0); Eosinophils # 0.1 K/mm3 (0.0-0.4); Eosinophils % 2.6 % (0.1-12.0); Hematocrit 43.8 % (42.0-52.0); Hemoglobin 13.9 g/dL (14.1-18.0); Lymphocytes # 1.3 K/mm3 (0.7-4.5); Lymphocytes % 29.1 % (10-50); Mean Corpuscular HGB Conc 31.7 g/dL (31.8-35.4); Mean Corpuscular Hemoglobin 31.7 pg (27.0-31.2); Mean Platelet Volume 8.1 fl (7.4-10.4); Monocytes # 0.3 K/mm3 (0.1-1.0); Monocytes % 6.2 % (1.7-9.3); Neutrophils # 2.7 K/mm3 (1.8-7.8); Neutrophils % 61.3 % (37.0-80.0); Platelet Count 203 K/mm3 (142-424); Red Blood Count 4.38 M/mm3 (4.60-6.20); Red Cell Distribution Width 13.2 % (11.5-17.5); White Blood Count 4.4 K/mm3 (4.8-10.8)
== END 2023-12-08 23:59 | disposition home or self-care (01) ==
LOC: LAB 10:19
PROVIDERS: PCP Family Medicine; Visit Provider Surgery
DX: K40.90 Unilateral inguinal hernia, without obstruction or gangrene, not specified as recurrent (principal)
CPT/HCPCS: 36415; 80053; 81001; 85025

== ENCOUNTER 2023-12-23 08:29 | Outpatient (CLI) | payer OTHER, SELFPAY | END 2023-12-23 23:59 | disposition home or self-care (01) | LOC: PREOP 08:30 | PROVIDERS: PCP Family Medicine; Visit Provider Surgery | DX: R69 Illness, unspecified (principal) ==

== ENCOUNTER 2023-12-28 06:07 | Day surgery (SDC) | payer OTHER, SELFPAY ==
[2023-12-23 08:51] VITALS: BMI 21.1
[2023-12-28] VITALS (11 sets, daily range): BP systolic 116–135; BP diastolic 70–79; PULSE 51–83; RESP 14–18; TEMP 36.3–43; O2SAT 93–98
[2023-12-28] MEDS: LACTATED RINGERS 1000ML 1,000 ML 25 ML IV (06:35)
--- NOTE | 2023-12-28 06:49 | EXP.ANES.CKL ---
[facility] Disclaimer: The information contained in this section may have been updated after the patient was seen, as this information can be updated by other users. Medical History Bipolar disorder Benign prostatic hyperplasia Inguinal hernia of left side without obstruction or gangrene Eczema Vitamin B12 deficiency (non anemic) Anxiety about health Hypotension Abnormal cardiovascular stress test Atypical angina Unstable angina HLD (hyperlipidemia) Dizziness Dyspnea CAD (coronary artery disease) Gastroesophageal reflux disease Family history of heart disease Right bundle branch block Abnormal EKG Surgical History History of cardiac cath History of tooth extraction History of cholecystectomy History of hernia repair Family History Other Family history of cancer Family history of heart disease Social History (Updated 12/28/23 @ 06:34 by Sinai Cochran RN) Smoking Status: Never smoker alcohol intake: never substance use type: denies use current occupational status: employed Travel in the last 8 weeks: None household members: spouse housing: house caffeine: Yes [facility] Anesthesia Checklist Patient Identification Patient Identification: Arm Band and Family Structural Data Admitted From: Home Planned Operative Procedure/s: Left open Inguinal Hernia Repair Consent for Planned Operative Procedure(s) Verified: Yes Verified Documents: Surgical Consent and History and Physical NPO Status Verified Time NPO: 00:00 Additional verifications Patient : No Anesthesia Reactions: No Hx Blood Transfusions: Yes Blood Transfusion Reaction: No Cephalosporin Allergy: No Previous Colonoscopy: Yes Airway Assessment Mallampati Score:: Class II C-Spine Mobility Assessed: Yes TMJ Mobility Assessed: Yes Dentition: Good Dentition Neurological Assessment Level of Consciousness: Awake, Alert, Appropriate and Follows Commands Hx Seizures: No Numbness or tingling in extremities: No Anesthesia Plan Anesthesia Risk discussed: Yes ASA Class: II Anesthesia Type: General Preoperative Comments Pre-Operative Comments: Cardiac Stent. HypOtension. History of Pneumonia. History of Kidney stones. Stomach ulcers.
[2023-12-28] MEDS: CEFAZOLIN SODIUM 1GM ADV 1 GM IV (07:40)
[2023-12-28] MEDS: 0.9 % SODIUM CHLORIDE 50 ML IV (07:40)
[2023-12-28] MEDS: ROPIVACAINE 0.5% 30ML VIAL 150 MG (07:57)
[2023-12-28] MEDS: LIDOCAINE 1% 20ML MDV 20 ML (07:57)
--- NOTE | 2023-12-28 08:52 | P.OP_ITS ---
Date of procedure: 12/28/23 Pre-op Diagnosis:: Left inguinal hernia Post-op Diagnosis:: Same Procedure performed:: Open repair of left inguinal hernia with placement of large Bard prefix mesh plug and onlay mesh Surgeon:: Srinivasan Dawson MD TRAILER DRIVER:: Margarito North Anesthesia: GETA Estimated blood loss (mL): 10 Operative findings:: Moderately large indirect hernia Operative note:: Patient was taken the operating room. He was given preoperative intravenous antibiotics. In the operating room he was placed in a supine position. General anesthesia was induced via endotracheal tube. Danielle catheter was placed. Abdomen and perineum was prepped and draped in the standard surgical fashion. Oblique incision was made in the left inguinal area superior to landmarks identifying the inguinal ligament. Dissection was carried down through subcutaneous tissues and Esthela's fascia using electrocautery. External oblique muscle was cleaned free and opened along the length of its fibers to the external ring. Underlying cord structures were dissected free from the floor the inguinal canal. The ilioinguinal nerve was clearly identified and preserved. Dissection was carried out and he had a moderately large indirect h ernia. Hernia sac from the cord structures. There concerns that this could be a sliding hernia due to attached thickened tissue possibly consistent with colon or more likely bladder. Therefore the hernia sac was not opened. Hernia contents were able to be reduced. A large size Bard prefix mesh plug was inserted into the internal ring defect. It was secured to the transversalis muscle fibers superior medially and to the shelving edge of the inguinal ligament inferior laterally. The onlay mesh was then secured in position to Javier's ligament and along the shelving edge of the inguinal ligament with a running 2-0 PDS suture. It was secured superior medially to the transversalis muscle fascia with interrupted 2-0 PDS horizontal mattress sutures with several interrupted simple 2-0 PDS sutures. Cord structures and ilioinguinal nerve were returned to the normal anatomic position. The 2 tails of the mesh were secured to 1 another with interrupted 2-0 PDS to reconstruct the internal ring. There was good hemostasis. Local anesthetic was infiltrated into the deep tissues as well as for an inguinal nerve block. External oblique muscle was closed over the cord structures with running 2-0 Vicryl. Esthela's fascia was closed with running 2-0 Vicryl. Skin was closed with 4-0 Monocryl in a running subcuticular fashion. Dermabond and dressing was applied Condition: stable Disposition: PACU Complications:: None immediately apparent
--- NOTE | 2023-12-28 09:01 | EXP.ANES.I ---
[facility] Anesthesia Record Part I Anesthesia Record I Intake, IV Amount: 1,600 Hydration: Adequate Estimated blood loss (mL): 10 Urine output (mL): 0 Blood Products used (#): none Blood Pressure: 117/72 SaO2: 94 Pulse Rate: 64 Airway Patency: Patent Respiratory Rate: 14 Temperature: 98.8 F Patient is:: Drowsy and Stable Stable to PACU at:: 08:57
[2023-12-28 10:57] LABS: Microscopic,Cath URINE MICROSCOPIC (MICROSCOPIC)
[2023-12-28 11:12] LABS: Appearance,Urine/Cath CLEAR (Clear); Bilirubin,Cath Negative (Negative); Blood, Urine/Cath Negative (Negative); Color,Urine/Cath YELLOW (Yellow); Glucose,Urine/Cath (UA) Negative (Negative); Ketones,Urine/Cath Negative (Negative); Leukocyte Esterase,Cath Negative (Negative); Nitrate,Cath Negative (Negative); Protein,Urine/Cath Negative (Negative); Specific Gravity, Urine/Cath 1.025 (1.005-1.030); Urobilinogen,Cath 0.2 EU/dl (0.2)
[2023-12-29 07:39] VITALS: BP 123/75; PULSE 96; RESP 16; TEMP 36.7; O2SAT 96
--- NOTE | 2023-12-29 07:39 | EXP.ANES.II ---
[facility] Anesthesia Record Part II Anesthesia Record Part II Discharge Time: 09:27 Destination: Surgical Day Care (OP Surgery) PACU nurse assessment reviewed?: Yes Patient Condition:: Good Anesthesia Complications:: None Swallowing reflex intact?: Yes Airway Patency: Patent Cyanosis?: No Blood Pressure: 123/75 SaO2: 96 Respiratory Rate: 16 Pulse Rate: 96 Temperature: 98.1 F Mental Status: Alert & Oriented Pain level:: 0 Nausea and/or vomitting:: None Intake, IV Amount: 0 Hydration: Adequate
== END 2023-12-28 10:07 | disposition home or self-care (01) ==
PROVIDERS: PCP Family Medicine; Visit Provider Surgery
PROC: (CPT 49525; principal; 2023-12-28 07:30)
DX: K40.90 Unilateral inguinal hernia, without obstruction or gangrene, not specified as recurrent (principal)
CPT/HCPCS: 49525; 81001; 96374; J3490; J0690; J1100; J2250; J2405; J3010; J7120

== ENCOUNTER 2024-03-22 10:45 | Outpatient (CLI) | payer OTHER, SELFPAY ==
[2024-03-22 18:23] LABS: Anion Gap 9.2 mEq/L (5-15); Blood Urea Nitrogen 16 mg/dl (9-20); Calcium 9.3 mg/dl (8.4-10.2); Carbon Dioxide 26 mmol/L (22.0-30.0); Chloride 106 mmol/L (98-107); Estimated Glomerular Filt Rate 99 ml/min (>60); GFR (African American) 120 ML/MIN (>60); Glucose 87 mg/dl (74-100); Potassium 4.2 mmoL/L (3.5-5.1); Sodium 137 mmol/L (136-145)
== END 2024-03-22 23:59 | disposition home or self-care (01) ==
LOC: LAB.DROPOF 03-23 13:29
PROVIDERS: PCP Family Medicine; Visit Provider Family Medicine
DX: I95.9 Hypotension, unspecified (principal)
CPT/HCPCS: 80048

== ENCOUNTER 2024-07-19 10:51 | Outpatient (CLI) | payer OTHER, SELFPAY ==
[2024-07-19 19:40] LABS: Alanine Aminotransferase 20 U/L (12-78); Albumin Level 4.3 g/dl (3.5-5.0); Albumin/Globulin Ratio 1.7 (1.1-1.8); Alkaline Phosphatase 108 U/L (38-126); Anion Gap 8.4 mEq/L (5-15); Aspartate Amino Transferase 23 U/L (17-59); Bilirubin,Total 0.6 mg/dl (0.2-1.3); Blood Urea Nitrogen 19 mg/dl (9-20); Calcium 9.3 mg/dl (8.4-10.2); Carbon Dioxide 25 mmol/L (22.0-30.0); Chloride 107 mmol/L (98-107); Estimated Glomerular Filt Rate 86 ml/min (>60); GFR (African American) 105 ML/MIN (>60); Globulin 2.5 g/dL (1.3-3.2); Glucose 83 mg/dl (74-100); Potassium 4.4 mmoL/L (3.5-5.1); Sodium 136 mmol/L (136-145); Total Protein,Serum 6.8 g/dl (6.3-8.2)
[2024-07-19 20:26] LABS: Vitamin B12 232 pg/mL (239-931)
[2024-07-19 20:27] LABS: Thyroid Stimulating Hormone 0.35 uIU/mL (0.465-4.68)
== END 2024-07-19 23:59 | disposition home or self-care (01) ==
LOC: LAB.DROPOF 07-20 11:45
PROVIDERS: PCP Family Medicine; Visit Provider Family Medicine
DX: F41.8 Other specified anxiety disorders (principal); R53.81 Other malaise; R53.83 Other fatigue
CPT/HCPCS: 80053; 82607; 84443

== ENCOUNTER 2024-07-28 14:20 | Outpatient (CLI) | payer OTHER, SELFPAY ==
[2024-07-28 17:53] LABS: Thyroglobulin by RIA ND
[2024-07-28 19:28] LABS: T4 (Thyroxine) 7.6 ug/dl (5.53-11.0); Triiodothryronine (T3) Uptake 29 % (23.5-40.5)
[2024-07-28 19:41] LABS: Thyroid Stimulating Hormone 0.61 uIU/mL (0.465-4.68)
[2024-07-30 09:08] LABS: Thyroid Peroxidase Antibodies <9 IU/mL (0-34)
[2024-08-02 09:10] LABS: Thyroglobulin Level <1.0 IU/mL (0.0-0.9)
== END 2024-07-28 23:59 | disposition home or self-care (01) ==
LOC: LAB.DROPOF 07-29 11:38
PROVIDERS: PCP Family Medicine; Visit Provider Family Medicine
DX: R79.89 Other specified abnormal findings of blood chemistry (principal); R53.83 Other fatigue
CPT/HCPCS: 84436; 84443; 84479; 86376; 86800

== ENCOUNTER 2025-03-07 09:56 | Outpatient (CLI) | payer SELFPAY ==
[2025-03-07 14:46] LABS: Hematocrit 43.4 % (42.0-52.0); Hemoglobin 14.5 g/dL (14.1-18.0); Immature Granulocytes % 0.2 %; Mean Corpuscular HGB Conc 33.4 g/dL (31.8-35.4); Mean Corpuscular Hemoglobin 30.0 pg (27.0-31.2); Mean Corpuscular Volume 89.9 fl (80-94); Nucleated Red Blood Cells % 0 %; Platelet Count 226 K/mm3 (142-424); Red Blood Count 4.83 M/mm3 (4.60-6.20); Red Cell Distribution Width-SD 43.3 fL; White Blood Count 4.1 K/mm3 (4.8-10.8)
[2025-03-07 15:24] LABS: Anion Gap 7.8 mEq/L (5-15); Blood Urea Nitrogen 10 mg/dl (9-20); Calcium 8.9 mg/dl (8.4-10.2); Carbon Dioxide 29 mmol/L (22.0-30.0); Chloride 104 mmol/L (98-107); Creatinine,Serum 1.00 mg/dl (0.66-1.25); Estimated Glomerular Filt Rate 76 ml/min (>60); GFR (African American) 93 ML/MIN (>60); Glucose 102 mg/dl (74-100); Potassium 3.8 mmoL/L (3.5-5.1); Sodium 137 mmol/L (136-145)
[2025-03-07 16:14] LABS: Vitamin B12 225 pg/mL (239-931)
--- OUTSIDE RECORDS SUMMARY | 2025-03-10 09:58 | XMS_ITS | Clinical Summary ---
Author Organization 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 TAKE ONE TABLET BY MOUTH THREE TIMES DAILY 90 Tab 1 9 Active atorvastatin (LIPITOR) 80 mg Oral TabletIndications :Coronary artery disease of [place] artery of [place] heart with stable angina pectoris,Non-rheu matic mitral regurgitation TAKE 1 TABLET BY MOUTH NIGHTLY 30 Tab 1 9 Active FLUoxetine (PROZAC) 40 mg Oral CapsuleIndication s:Mild single current episode of major depressive disorder TAKE ONE CAPSULE BY MOUTH DAILY *PATIENT NEEDS TO MAKE APPOINTMENT WITH DR CARDONA* 15 Cap 9 Active sucralfate (CARAFATE) 1 gram Oral TabletIndications :Gastroesophageal reflux disease with esophagitis TAKE ONE TABLET BY MOUTH THREE TIMES DAILY NEEDED 90 Tab 1 9 Active omeprazole (PRILOSEC) 40 mg Oral Capsule, Delayed Release(E.C.) TAKE 1 CAPSULE BY MOUTH ONCE DAILY 30 Cap 0 Active sucralfate (CARAFATE) 1 gram Oral TabletIndications :Gastroesophageal reflux disease with esophagitis TAKE ONE TABLET BY MOUTH THREE TIMES DAILY NEEDED 90 Tab 1 0 Active Active Problems Problem Noted Date Diagnosed Date Bradycardia 12/07/2017 Orthostatic hypotension 10/26/2017 Abnormal EKG 09/23/2017 Lactose intolerance 01/05/2017 Dizziness 12/10/2016 Non-rheumatic mitral regurgitation 12/10/2016 Coronary artery disease of n ative artery of [place] heart with stable angina pectoris 12/10/2016 Overview (01/05/2017): Cath 01/15/2016 [facility] 10% LAD 30% LCx LVEF ok, LVEDP normal Snoring 12/10/2016 Depression 12/10/2016 GERD (gastroesophageal reflux disease) 7 Resolved Problems Problem Noted Date Diagnosed Date Resolved Date Precordial pain 01/05/2017 11/19/2017 Encounter to establish care 12/10/2016 03/23/2018 Surgical History Surgery Date Site/Laterality Comments ABDOMINAL HERNIA REPAIR COLONOSCOPY CHOLECYSTECTOMY UPPER GASTROINTESTINAL ENDOSCOPY 05/07/2017 N/A ESOPHAGOGASTRODUODENOSCOPY with biopsy/COLONOSCOPY with biopsy; Surgeon: Simon Jordan MD; Location: [facility]; Service: Endoscopy URETEROSCOPY 09/23/2017 Right CYSTOSCOPY, RIGHT URETEROSCOPY, ; Surgeon: Flo Briceno MD; Location: [facility]; Service: Urology Medical History Medical History Date Comments Ulcer Chest pain Renal disorder kidney stones GI bleed History of blood transfusion Pneumonia 2012 Heartburn Irritable bowel syndrome Anemia in past with ulc er and pneumonia Encounter for blood transfusion 2013 with bleeding ulcer @ [facility] Family History Medical History Relation Name Comments Kidney Disease Father Heart Disease Mother Anesth Problems Neg Hx Relation Name Status Comments Father (Age 75) renal fail ure Mother (Age 56) Social History Tobacco Use Types Packs/Day Years Used Date Smoking Tobacco: Never Smokeless Tobacco: Never Alcohol Use Standard Drinks/Week Comments No 0 (1 standard drink = 0.6 oz pur e alcohol) PHQ-2 Answer Date Recorded PHQ-2 Score 0 08/03/2018 Sex and Gender Information Value Date Recorded Sex Assigned at Not on file Legal Sex Male 5:34 AM EDT Gender Identity Not on file Sexual Orientation Not on file Last Filed Vital Signs Vital Sign Reading Time Taken Comments Blood Pressure 116/70 03/23/2018 11:12 AM EST Pulse 68 12/07/2017 10:27 AM EDT Temperature 36.5 C (97.7 F) 03/23/2018 11:12 AM EST Respiratory Rate 14 09/23/2017 9:30 AM EDT Oxygen Saturation 98% 12/07/2017 10:27 AM EDT Inhaled Oxygen Concentration - - Weight 72.6 kg (160 lb) 03/23/2018 11:12 AM EST Height 182.9 cm (6') 12/07/2017 10:27 AM EDT Body Mass Index 21.7 12/07/2017 10:27 AM EDT Plan of Treatment Health Maintenance Due Date Last Done Comments Annual Wellness Exam 1968 DTaP/TDaP/Td (1 - Tdap) 1984 Hepatitis B Vaccine (1 of 3 - 19+ 3-dose series) 1984 Pneumococcal Vaccine 50+ (1 of 2 - PCV) 1984 Cologuard 2010 FIT 2010 Sigmoidoscopy 2010 Virtual Colonography 2010 Zoster (1 of 2) 07/11/2015 COVID-19 Vaccine (1 - 2024-2 6 season) 2024 Influenza Vaccine (#1) 2024 7 (Declined) Colon Cancer Screening 05/07/2027 Colonoscopy 05/07/2027 05/07/2017 Meningococcal B Vaccine Aged Out No l onger eligible based on patient's age to complete this topic Goals Goal Patient Goal Type Associated Problems Recent Progress Patient-Stated? Author Maintain a healthy diet, exercise regularly and maintain an ideal body weight General No Evon Castrejon, RADHA Procedures Procedure Name Priority Date/Time Associated Diagnosis Comments [facility] EGD-COLONOSCOPY Routine 05/07/2017 1:45 PM EST from Last 3 Months or Most Recently Relevant to Health Maintenance Results * [facility] EGD-COLONOSCOPY (05/07/2017 1:45 PM EST) 05/07/2017 1:45 PM EST Impressions [facility] - 05/07/2017 3:11 PM EST Plan: 1) Follow up with biopsies, if no results in 2-3 weeks, please call office, , 2) Office f/u in 4-6 weeks, 3) recall colon in 5-10 years. This section is an excerpt of the full report. Simon Jordan MD GI PROCEDURE ORDERABLES Fin al Result [facility] [address] [place] [address] from Last 3 Months or Most Recently Relevant to Health Maintenance Insurance [facility]
== END 2025-03-07 23:59 | disposition home or self-care (01) ==
LOC: LAB.DROPOF 03-10 09:56
PROVIDERS: PCP Family Medicine; Visit Provider Family Medicine
DX: F41.8 Other specified anxiety disorders (principal); R79.89 Other specified abnormal findings of blood chemistry; M54.9 Dorsalgia, unspecified; E53.8 Deficiency of other specified B group vitamins
CPT/HCPCS: 80048; 82607; 85025